=== PATIENT | male | born 1990 | race Two or more races ===

== ENCOUNTER 2018-01-07 20:06 | Emergency (ER) | payer OTHER ==
[2018-01-07] MEDS ORDERED: Diphtheria,Pertussis(Acell),Tetanus Vaccine 0.5 ML SDV IM ONE (20:44)
[2018-01-07] MEDS ORDERED: traMADol 50 MG Tab PO ONE (21:12)
[2018-01-07] MEDS ORDERED: Cephalexin 500 MG Cap PO ONE (21:12)
--- NOTE | 2018-01-08 02:15 | ER ---
DATE SEEN: 01/07/2018 CHIEF COMPLAINT: Injury of the left middle finger. HISTORY OF PRESENT ILLNESS: This is a 27-year-old male at work and his finger was caught between a binder and heavy load causing a crush injury to the middle finger. Complains of significant pain. PAST MEDICAL HISTORY: He thinks that his tetanus was more than 5 years ago vaccination. ALLERGIES: He has no known allergies. REVIEW OF SYSTEMS: All other systems negative. PHYSICAL EXAMINATION: GENERAL: He is not in distress. VITAL SIGNS: He is afebrile. EXTREMITIES: Left middle finger revealed crush injury to the left distal phalanx of the middle finger with partial avulsion of the nail bed. There is some mild sublingual hematoma. He is able to move the distal interphalangeal joint.José Miguel lenght of laceration estimated at 3 cm DIAGNOSTIC STUDIES: X-ray showed committed fracture of the distal phalanx. IMPRESSION: 1. Distal phalanx fracture. 2. Soft tissue injury to the left middle finger. PLAN: He soaked it for about 30 minutes after the x-ray, digital block and then sutured the nail back to the nail bed closing the laceration in 5 stitches of 4- 0 Prolene. There were no complications. Due to the dirty wound, I put him on cephalexin 500 mg three times a day. I updated his tetanus today and I will also send him with [facility] for pain. He is supposed to come back to the office in a week for removal of stitches. Wound instructions were given and the finger will be splinted with a U-shaped splint, preformed and is to keep it immobilized and elevated until he is seen in the office. TIME SEEN: 2044 hours. /[id number] ADRIEN/ANDERSON MTDTania
--- NOTE | 2018-01-09 14:37 | CR ---
INDICATION: Finger caught in a chain while uploading payloader. LEFT THIRD FINGER: Three views of the left third finger revealed a severely comminuted fracture through the ungual tuft with an oblique fracture line extending through the shaft and proximal metaphysis of the distal phalanx. Up to 3 mm separation of fracture fragments is noted. Some minimal overriding is noted at the joint surface of the distal phalanx along its lateral aspect. Evidence of soft tissue injury is seen. No other bone or joint abnormality was identified. IMPRESSION: Comminuted fracture ungual tuft and proximal phalanx in general, third finger on the left with moderate deformity. MTDD
== END 2018-01-07 22:10 | disposition home or self-care (01) ==
LOC: FB.ED 20:06
DX: S62.633A Displaced fracture of distal phalanx of left middle finger, initial encounter for closed fracture (principal); S61.313A Laceration without foreign body of left middle finger with damage to nail, initial encounter; Z23 Encounter for immunization; W23.1XXA Caught, crushed, jammed, or pinched between stationary objects, initial encounter; Y99.0 Civilian activity done for income or pay
CPT/HCPCS: 11760; 73140; 90471; 90715; 99283; A9270; 12002

== ENCOUNTER 2020-04-20 18:13 | Emergency (ER) | payer SELFPAY ==
[2020-04-20] MEDS ORDERED: Acetaminophen 500 MG Tab PO ONE (18:47)
[2020-04-20] MEDS ORDERED: methylPREDNISolone Sodium Succinate 125 MG/2 ML SDV IM ONE (18:48)
--- NOTE | 2020-04-20 20:39 | EDM.PDOC ---
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 to load at [facility] at 9a, then thinks he will drive to the [facility] did feel better after meds here (Solu-Medrol 125 mg IV and colchicine 0.6 mg PO and APAP 1000 mg PO) Right Great Toe Pain Score (Numeric/FACES): 10 - Related Data Allergies Allergy/AdvReac Type Severity Reaction Status Date / Time No Known Allergies Allergy Verified 01/07/18 20:21 Home Meds: Home Meds Colchicine [Colcrys] 0.6 mg PO BID #10 tablet 04/20/20 [Rx] Indomethacin 50 mg PO TID #21 04/20/20 [Rx] Indomethacin 50 mg PO TID #21 capsule 04/20/20 [Rx] predniSONE 20 mg PO ASDIRECTED #9 tab 04/20/20 [Rx] Past Medical History Musculoskeletal History: Reports: Gout Endocrine/Metabolic History: Reports: Obesity/BMI 30+ - Infectious Disease History Infectious Disease History: Reports: Chicken Pox Social & Family History - Family History Family Medical History: Noncontributory - Tobacco Use Smoking Status *Q: Never Smoker Second Hand Smoke Exposure: No - Caffeine Use Caffeine Use: Reports: Coffee - Alcohol Use Days Per Week of Alcohol Use: 2 Number of Drinks Per Day: 6 Total Drinks Per Week: 12 - Recreational Drug Use Recreational Drug Use: No Review of Systems - Review of Systems Review Of Systems: See Below Constitutional: Reports: No Symptoms Eyes: Reports: No Symptoms Ears: Reports: No Symptoms Nose: Reports: No Symptoms Mouth/Throat: Reports: No Symptoms Respiratory: Reports: No Symptoms Cardiovascular: Reports: No Symptoms GI/Abdominal: Reports: No Symptoms Genitourinary: Reports: No Symptoms Musculoskeletal: Reports: Joint Pain Skin: Reports: No Symptoms Neurological: Reports: No Symptoms Psychiatric: Reports: No Symptoms ED EXAM, GENERAL - Physical Exam Exam: See Below Exam Limited By: No Limitations General Appearance: Alert, WD/WN, No Apparent Distress, Other (pleasant, friendly, NAD) Respiratory/Chest: No Respiratory Distress Cardiovascular: Regular Rate, Rhythm Extremities: Other (R great toe with mild swell and mild red and 1+ tender, inc'd pain with ROM, no evidence cellulitis, rest of foot wnl) Course - Vital Signs Last Recorded V/S: Last Vital Signs Temp 36.4 C 04/20/20 18:40 Pulse 89 04/20/20 18:40 Resp 16 04/20/20 18:40 BP 141/83 H 04/20/20 18:40 Pulse Ox 97 04/20/20 18:40 - Orders/Labs/Meds Labs: Laboratory Tests 04/20/20 04/20/20 04/20/20 Range/Units 19:22 19:22 19:22 WBC 6.7 (4.5-12.0) X10-3/uL RBC 4.57 (4.30-5.75) x10(6)uL Hgb 15.0 (13.5-17.8) g/dL Hct 43.9 (30.0-51.3) % MCV 96.1 H (80-96) fL MCH 32.8 (27.7-33.6) pg MCHC 34.1 (32.2-35.4) g/dL RDW 11.5 (11.5-15.5) % Plt Count 230 (125-369) X10(3)uL MPV 8.6 (7.4-10.4) fL Neut % (Auto) 56.0 (46-82) % Lymph % (Auto) 36.5 (13-37) % Roberts % (Auto) 6.1 (4-12) % Eos % (Auto) 1 (1.0-5.0) % Baso % (Auto) 1 (0-2) % Neut # (Auto) 3.8 (1.6-8.3) # Lymph # (Auto) 2.4 (0.6-5.0) # Roberts # (Auto) 0.4 (0.0-1.3) # Eos # (Auto) 0.1 (0.0-0.8) # Baso # (Auto) 0.0 (0.0-0.2) # Sodium 136 (135-145) mmol/L Potassium 4.1 (3.5-5.3) mmol/L Chloride 99 L (100-110) mmol/L Carbon Dioxide 29 (21-32) mmol/L BUN 11 (7-18) mg/dL Creatinine 1.1 (0.70-1.30) mg/dL Est Cr Clr Drug Dosing 101.39 mL/min Estimated GFR (MDRD) > 60 (>60) BUN/Creatinine Ratio 10.0 (9-20) Glucose 216 H (80-116) mg/dL Uric Acid 7.2 H (2.6-6.0) mg/dL Calcium 8.4 L (8.6-10.2) mg/dL Total Bilirubin 0.8 (0.1-1.3) mg/dL AST 122 H (5-25) IU/L ALT 279 H* (12-36) U/L Alkaline Phosphatase 87 (56-112) IU/L C-Reactive Protein (0.5-0.9) mg/dL Total Protein 7.8 (6.0-8.0) g/dL Albumin 4.0 (3.5-5.2) g/dL Globulin 3.8 g/dL Albumin/Globulin Ratio 1.1 // Range/Units 19:22 WBC (4.5-12.0) X10-3/uL RBC (4.30-5.75) x10(6)uL Hgb (13.5-17.8) g/dL Hct (30.0-51.3) % MCV (80-96) fL MCH (27.7-33.6) pg MCHC (32.2-35.4) g/dL RDW (11.5-15.5) % Plt Count (125-369) X10(3)uL MPV (7.4-10.4) fL Neut % (Auto) (46-82) % Lymph % (Auto) (13-37) % Roberts % (Auto) (4-12) % Eos % (Auto) (1.0-5.0) % Baso % (Auto) (0-2) % Neut # (Auto) (1.6-8.3) # Lymph # (Auto) (0.6-5.0) # Roberts # (Auto) (0.0-1.3) # Eos # (Auto) (0.0-0.8) # Baso # (Auto) (0.0-0.2) # Sodium (135-145) mmol/L Potassium (3.5-5.3) mmol/L Chloride (100-110) mmol/L Carbon Dioxide (21-32) mmol/L BUN (7-18) mg/dL Creatinine (0.70-1.30) mg/dL Est Cr Clr Drug Dosing mL/min Estimated GFR (MDRD) (>60) BUN/Creatinine Ratio (9-20) Glucose (80-116) mg/dL Uric Acid (2.6-6.0) mg/dL Calcium (8.6-10.2) mg/dL Total Bilirubin (0.1-1.3) mg/dL AST (5-25) IU/L ALT (12-36) U/L Alkaline Phosphatase (56-112) IU/L C-Reactive Protein 1.1 H (0.5-0.9) mg/dL Total Protein (6.0-8.0) g/dL Albumin (3.5-5.2) g/dL Globulin g/dL Albumin/Globulin Ratio Meds: Medications Discontinued Medications Generic Name Dose Route Start Last Admin Trade Name Freq PRN Reason Stop Dose Admin Acetaminophen 1,000 mg 04/20/20 18:47 04/20/20 19:25 Tylenol Extra Strength PO 04/20/20 18:48 1,000 mg ONETIME ONE Administration Methylprednisolone Sodium Succinate 125 mg 04/20/20 18:48 04/20/20 19:25 Solu-Medrol IM 04/20/20 18:49 125 mg ONETIME ONE Administration - Re-Assessments/Exams Free Text/Narrative Re-Assessment/Exam: 04/20/20 21:04 pt not had inc'd BS in past, told he most likely has DM inc'd LFTs c/w alc hepatitis, which was discussed, drinks on weekends Departure - Departure Time of Disposition: 20:32 Disposition: Home, Self-Care 01 Condition: Good Clinical Impression: Gouty arthritis of right great toe, Hyperglycemia, Hyperuricemia, Elevated liver function tests, Elevated C-reactive protein (CRP) - Discharge Information *PRESCRIPTION DRUG MONITORING PROGRAM REVIEWED*: Not Applicable *COPY OF PRESCRIPTION DRUG MONITORING REPORT IN PATIENT BUDDY: Not Applicable Prescriptions: Colchicine [Colcrys] 0.6 mg PO BID #10 tablet Indomethacin 50 mg PO TID #21 capsule Indomethacin 50 mg PO TID #21 predniSONE 20 mg PO ASDIRECTED #9 tab Instructions: Uric Acid Test, Hyperglycemia, Liver Function Tests Referrals: PCP,None [Primary Care Provider] - Additional Instructions: For inflammation, take indomethacin 50 mg 1 tab 3 times a day for 7 days. Do not take more than 3 tabs in 24 hours. For inflammation, take acetaminophen 500 mg 2 tabs 3 times a day for 7 days. Take at the same time as the indomethacin. For inflammation, take colchicine 0.6 mg 1 capsule 2 times a day for 5 days. For inflammation take prednisone 20 mg 2 tabs for the next 2 days, then 1 tab daily for [address] Miller in one week for further discussion regarding the gout, your elevated blood sugar (glucose) and your elevated liver function tests. Sepsis Event Note (ED) - Evaluation Sepsis Screening Result: No Definite Risk - Focused Exam Vital Signs: Vital Signs Temp Pulse Resp BP Pulse Ox 04/20/20 18:40 36.4 C 89 16 141/83 H 97
[2020-04-20 21:16] LABS: HEMOGLOBIN A1C 5.9 % (<5.7)
== END 2020-04-20 21:05 | disposition home or self-care (01) ==
LOC: FB.ED 18:13
DX: M10.9 Gout, unspecified (principal); R73.9 Hyperglycemia, unspecified; E66.9 Obesity, unspecified; Z68.34 Body mass index [BMI] 34.0-34.9, adult; Z79.899 Other long term (current) drug therapy
CPT/HCPCS: 36415; 80053; 83036; 84550; 85025; 86140; 96372; 99283; A9270; J2930